=== PATIENT | male | born 1955 | race Caucasian/White ===

== ENCOUNTER 2018-09-18 08:16 | Day surgery (SDC) | payer BC ==
[~2018-09-18 08:16] MED LIST: Dexamethasone 4 MG/ML 5 ML MDV ONE; Lactated Ringers 1,000 ML IV SCH; Midazolam 1 MG/ML 2 ML SDV ONE; Ondansetron 4 MG/2 ML SDV ONE; Propofol 200 MG/20 ML SDV ONE; Rocuronium 100 MG/10 ML Syringe ONE; cefOXitin 2 GM in Premix Bag 1 BAG IV ONE; fentaNYL 250 MCG/5 ML SDV ONE
[2018-09-18] MEDS ORDERED: fentaNYL 100 MCG/2 ML SDV IVPUSH PRN (08:39)
[2018-09-18] MEDS ORDERED: cefOXitin 100 ML ONE (08:45)
[2018-09-18] MEDS ORDERED: Scopolamine 1.5 MG Transdermal Patch TRDERM PRN (09:19)
--- NOTE | 2018-09-18 09:19 | PCM.PREANE ---
Preanesthetic Assessment - Anesthesia/Transfusion/Family Hx Anesthesia History: Prior Anesthesia Without Reaction Family History of Anesthesia Reaction: No Transfusion History: No Prior Transfusion(s) - Review of Systems General: No Symptoms Pulmonary: No Symptoms Cardiovascular: No Symptoms Gastrointestinal: No Symptoms Neurological: No Symptoms Other: Reports: None - Physical Assessment NPO Status Date: 09/17/18 NPO Status Time: 23:00 O2 Sat by Pulse Oximetry: 98 Respiratory Rate: 16 Vital Signs: Last Vital Signs Temp 97.7 F 09/18/18 08:35 Pulse 57 L 09/18/18 08:35 Resp 16 09/18/18 08:35 BP 145/79 H 09/18/18 08:35 Pulse Ox 98 09/18/18 08:35 Height: 6 ft Weight: 87.09 kg ASA Class: 2 Mental Status: Alert & Oriented x3 Airway Class: Mallampati = 2 Dentition: Reports: Normal Dentition ROM/Head Extension: Full Lungs: Clear to Auscultation, Normal Respiratory Effort Cardiovascular: Regular Rate, Regular Rhythm - Allergies Allergies/Adverse Reactions: Allergies Allergy/AdvReac Type Severity Reaction Status Date / Time gluten Allergy Rash Verified 09/15/18 11:57 - Blood Blood Available: No - Anesthesia Plan Pre-Op Medication Ordered: None - Acknowledgements Anesthesia Type Planned: General Anesthesia Pt an Appropriate Candidate for the Planned Anesthesia: Yes Alternatives and Risks of Anesthesia Discussed w Pt/Guardian: Yes Pt/Guardian Understands and Agrees with Anesthesia Plan: Yes Additional Comments: PMH: htn, alex-uses cpap PLAN: get PreAnesthesia Questionnaire HEENT History: Reports: Other (See Below) Other HEENT History: wears glasses Cardiovascular History: Reports: Hypertension Other Cardiovascular History: murmur as an Respiratory History: Reports: Sleep Apnea Other Respiratory History: uses CPAP Gastrointestinal History: Reports: GERD Genitourinary History: Reports: Renal Calculus Musculoskeletal History: Reports: Fracture, Other (See Below) Other Musculoskeletal History: scoliosis Neurological History: Reports: None Psychiatric History: Reports: None Endocrine/Metabolic History: Reports: None Hematologic History: Reports: None Immunologic History: Reports: None Oncologic (Cancer) History: Reports: None Other Dermatologic History: occasional rash if he eats gluten - Past Surgical History Head Surgeries/Procedures: Reports: None HEENT Surgical History: Reports: None Respiratory Surgical History: Reports: None GI Surgical History: Reports: Appendectomy, Colonoscopy, EGD, Hernia, Inguinal Male Surgical History: Reports: Lithotripsy ([facility]) Endocrine Surgical History: Reports: None Neurological Surgical History: Reports: None Musculoskeletal Surgical History: Reports: Other (See Below) Other Musculoskeletal Surgeries/Procedures:: surgery to repair fx left collarbone Oncologic Surgical History: Reports: None Dermatological Surgical History: Reports: None - SUBSTANCE USE Smoking Status *Q: Never Smoker Recreational Drug Use History: No - HOME MEDS Home Medications: Home Meds Aspirin [Ecotrin] 81 mg PO DAILY 09/15/18 [History] Lisinopril 5 mg PO DAILY 09/15/18 [History] Multivitamin [Multivitamins] 1 tab PO DAILY 09/15/18 [History] Omeprazole 20 mg PO DAILY 09/15/18 [History] - CURRENT (IN HOUSE) MEDS Current Meds: Current Medications Fentanyl (Sublimaze) 50 mcg IVPUSH Q5M PRN PRN Reason: Pain (severe 7-10) Stop: 09/18/18 14:00 Lactated Ringer's (Ringers, Lactated) 1,000 mls @ 125 mls/hr IV ASDIRECTED [facility] Discontinued Medications Dexamethasone (Dexamethasone) Confirm Administered Dose 20 mg .ROUTE .STK-MED ONE Stop: 09/18/18 07:07 Fentanyl (Sublimaze) Confirm Administered Dose 250 mcg .ROUTE .STK-MED ONE Stop: 09/18/18 07:06 Cefoxitin Sodium 2 gm/ Premix 50 mls @ 100 mls/hr IV ONETIME ONE Stop: 09/18/18 06:29 Lactated Ringer's (Ringers, Lactated) 1,000 mls @ 125 mls/hr IV ASDIRECTED [facility] Lidocaine HCl (Xylocaine-Mpf 1%) Confirm Administered Dose 5 mls @ as directed .ROUTE .STK-MED ONE Stop: 09/18/18 07:07 Acetaminophen (Ofirmev) Confirm Administered Dose 100 mls @ as directed IV .STK- MED ONE Stop: 09/18/18 07:26 Cefoxitin Sodium (Mefoxin In Dextrose,Iso-Osm 1 Gm/50 Ml) Confirm Administered Dose 100 mls @ as directed .ROUTE .STK-MED ONE Stop: 09/18/18 08:46 Midazolam HCl (Versed 1 Mg/Ml) Confirm Administered Dose 2 mg .ROUTE .STUnited Preference-MED ONE Stop: 09/18/18 07:06 Ondansetron HCl (Zofran) Confirm Administered Dose 4 mg .ROUTE .DynaOpticsMED ONE Stop: 09/18/18 07:07 Propofol (Diprivan 20 Ml) Confirm Administered Dose 200 mg .ROUTE .DynaOpticsMED ONE Stop: 09/18/18 07:06 Rocuronium [place] (Zemuron) Confirm Administered Dose 100 mg .ROUTE .DynaOpticsMED ONE Stop: 09/18/18 07:10 Succinylcholine Chloride (Succinylcholine Chloride) Confirm Administered Dose 200 mg .ROUTE .DynaOpticsMED ONE Stop: 09/18/18 07:10
[2018-09-18] MEDS ORDERED: ceFAZolin 1 GM Vial ONE (09:46)
[2018-09-18] MEDS ORDERED: Bupivacaine 0.5% 10 ML SDV ONE (09:46)
[2018-09-18] MEDS ORDERED: Arista AH Absorbable Hemostat ONE (09:47)
[2018-09-18] MEDS ORDERED: ePHEDrine 50 MG/ML SDV ONE (10:41)
[2018-09-18] MEDS ORDERED: Atropine 0.1 MG/ML 10 ML Syringe ONE (10:41)
[2018-09-18] MEDS ORDERED: EPINEPHrine 1:10,000 1 MG/10 ML Syringe ONE (10:41)
[2018-09-18] MEDS ORDERED: Glycopyrrolate 0.2 MG/ML SDV ONE ×2 (10:41→10:53)
[2018-09-18] MEDS ORDERED: Neostigmine Methylsulfate 1 MG/ML 5 ML Syringe ONE (10:53)
[2018-09-18] MEDS ORDERED: HYDROmorphone 2 MG/ML Syringe ONE (11:12)
[2018-09-18] MEDS ORDERED: Morphine 10 MG/ML Syringe IVPUSH PRN (11:45)
[2018-09-18] MEDS ORDERED: Acetaminophen/HYDROcodone 325-5 MG Tab PO PRN (11:45)
[2018-09-18] MEDS ORDERED: Lactated Ringers 1,000 ML IV SCH (11:45)
--- NOTE | 2018-09-18 11:48 | PCM.OPNOTE ---
- General Post-Op/Procedure Note Date of Surgery/Procedure: 09/18/18 (.) Operative Procedure(s): Laparoscopic cholecystectomy Pre Op Diagnosis: Symptomatic cholelithiasis Post-Op Diagnosis: Same Anesthesia Technique: General ET Tube (ASA II) Primary Surgeon: Hoang Valentino Editorial Writer: Charlene Amezcua Condition: Good Free Text/Narrative:: DICTATION 379454 CPT CODE [id number]
--- NOTE | 2018-09-18 13:03 | PCM.POSTAN ---
POST ANESTHESIA ASSESSMENT - MENTAL STATUS Mental Status: Alert, Oriented - RESPIRATORY Respiratory Status: Respiratory Rate WNL, Airway Patent, O2 Saturation Stable - CARDIOVASCULAR CV Status: Pulse Rate WNL, Blood Pressure Stable - GASTROINTESTINAL GI Status: No Symptoms - POST OP HYDRATION Hydration Status: Adequate & Stable
--- NOTE | 2018-09-18 13:29 | PCM48HPAN ---
Post Anesthesia Note - EVALUATION WITHIN 48HRS OF ANESTHETIC Vital Signs in Normal Range: Yes Patient Participated in Evaluation: Yes Respiratory Function Stable: Yes Airway Patent: Yes Cardiovascular Function Stable: Yes Hydration Status Stable: Yes Pain Control Satisfactory: Yes Nausea and Vomiting Control Satisfactory: Yes Mental Status Recovered: Yes Resp Rate: 14
[2018-09-18] MEDS ORDERED: Ibuprofen 400 MG Tab PO ONE (14:57)
--- NOTE | 2018-09-18 16:15 | OR ---
SURGEON: Hoang Valentino M.D. DATE OF PROCEDURE: 09/18/2018 OPERATION PERFORMED: Laparoscopic cholecystectomy. ANESTHESIA: General endotracheal. ASA CLASSIFICATION: II. PREOPERATIVE DIAGNOSIS: Symptomatic cholelithiasis. POSTOPERATIVE DIAGNOSIS: Symptomatic cholelithiasis. ESTIMATED BLOOD LOSS: 20 mL. INTRAOPERATIVE FLUID REPLACEMENT: 1500 mL of crystalloid. INTRAOPERATIVE URINARY OUTPUT: 700 mL. DESCRIPTION OF PROCEDURE: The patient was taken to the operating room and placed on the operating table in the supine position. Time-out was called for appropriate identification of the patient and procedure. Thigh-high TEDs and sequential compression boots were placed. Following satisfactory attainment of general endotracheal anesthesia, a Brody catheter was placed in the patient's urinary bladder. The abdomen was prepped with DuraPrep solution and sterile drapes were applied. The skin just below the umbilicus was infiltrated with 0.5% Marcaine solution. The skin incision was made and deepened through the subcutaneous tissue obtaining hemostasis with the use of electrocautery. The Veress needle was introduced into the peritoneal cavity. Saline drop test was positive. Carbon dioxide pneumoperitoneum was established with the release set at 13 cm of water. Once a satisfactory pneumoperitoneum was established, the Veress needle was removed and a 5 mm camera and port were placed. The patient was in the process of being positioned with his feet down and rolled to the left when he became profoundly bradycardic. We did have to stop insufflation and desufflate the abdomen. He was resuscitated per Anesthesia and it was determined that we should proceed with the operative procedure. The abdomen was re-insufflated using total pressure of 11 cm of water. The patient did not have any other untoward events using less pressure. With the 5 mm infraumbilical camera and port in position, a 12 mm subxiphoid, 5 mm midclavicular, and 5 mm anterior axillary ports were placed. Each incision was preemptively infiltrated with 0.5% Marcaine. The gallbladder was grasped, adhesions were taken down, and the cholecystohepatic triangle was dissected free identifying the cystic duct and cystic artery. Critical view of both structures were able to be obtained. Structures were serially hemoclipped and divided with the laparoscopic Metzenbaum scissor. The gallbladder was then dissected away from its bed using electrocautery. Some bile but no stones were spilled. Once the gallbladder was amputated, this was placed in an Endopouch and maintained in situ. The bed of the gallbladder was inspected and small bleeding sites were electrocoagulated. Surgicel was placed into the bed of the gallbladder. The right upper quadrant was then irrigated with 250 mL of saline containing 20 mL of 0.5% Marcaine solution. That fluid was left in place. The EndoCatch containing gallbladder and 12 mm port were removed. Under camera vision, the 5 mm midclavicular and anterior axillary ports were removed and finally the infraumbilical camera and port were removed. The wounds were inspected for hemostasis and bleeding sites were electrocoagulated. The subxiphoid and infraumbilical incisions were closed in 2 layers approximating the subcutaneous tissue with 3-0 Vicryl and the skin with subcuticular 4-0 Monocryl. The midclavicular and anterior axillary incisions were closed with subcuticular 4-0 Monocryl. All incisions were Steri-Stripped and dressed with sterile Tegaderm pads. Sponge, needle, and instrument counts were all correct. Brody catheter was removed prior to emergence from anesthesia. Following emergence from anesthesia and extubation, the patient was taken to recovery room in satisfactory condition. JENNIFER KRUGER /[id number]
== END 2018-09-18 16:24 | disposition home or self-care (01) ==
LOC: MW.SDS 08:16
PROVIDERS: ATTEND Surgery
DX: K80.10 Calculus of gallbladder with chronic cholecystitis without obstruction (principal); I10 Essential (primary) hypertension; K21.9 Gastro-esophageal reflux disease without esophagitis; K90.41 Non-celiac gluten sensitivity; G47.30 Sleep apnea, unspecified; M19.90 Unspecified osteoarthritis, unspecified site; Z99.89 Dependence on other enabling machines and devices; Z79.82 Long term (current) use of aspirin; Z79.899 Other long term (current) drug therapy
CPT/HCPCS: 47562; A9270; J0131; J0330; J0461; J0694; J1100; J1170; J2001; J2250; J2405; J2704; J3010; J3490; J7120; 88304; J0171; J0690

== ENCOUNTER 2023-09-15 09:31 | Emergency (ER) | payer MEDICARE, OTHER ==
[2023-09-15] MEDS: Sodium Chloride 0.9% 10 ML Syringe FLUSH PRN (10:05)
[2023-09-15] MEDS: Sodium Chloride 0.9% 1,000 ML IV STA ×2 (10:05→12:19)
[2023-09-15] MEDS: Ondansetron 4 MG/2 ML SDV IVPUSH ONE (10:05)
[2023-09-15] MEDS: Sodium Chloride 0.9% 2.5 ML Syringe FLUSH PRN (10:05)
[2023-09-15] MEDS: Morphine 4 MG/ML Syringe IVPUSH ONE ×2 (10:06→10:48)
[2023-09-15 10:07] LABS: HEMATOCRIT 40.2 % (42.0-52.0); HEMOGLOBIN 13.8 g/dL (14.0-18.0); MEAN CORPUSCULAR HEMOGLOBIN 30.9 pg (28.0-32.0); MEAN CORPUSCULAR HGB CONC 34.3 g/dL (32.0-36.0); MEAN CORPUSCULAR VOLUME 89.9 fL (83.0-99.0); MEAN PLATELET VOLUME 8.2 fL (9.4-12.4); PLATELET COUNT,PLT 211 K/uL (150-400); RED BLOOD CELL COUNT 4.47 M/uL (4.52-5.90); WHITE BLOOD CELL COUNT,WBC 12.75 K/uL (3.9-11.3)
[2023-09-15 10:35] LABS: A/G RATIO 1.3 (0.9-1.6); ALBUMIN 3.7 g/dL (3.4-5.0); BILIRUBIN TOTAL 0.4 mg/dL (0.2-1.0); CALCIUM 8.8 mg/dL (8.5-10.1); CARBON DIOXIDE,CO2 27.8 mmol/L (21.0-32.0); EST CRCL DRUG DOSING (CG) 79.76 mL/min; POTASSIUM,K 3.9 mmol/L (3.5-5.1); PROTEIN TOTAL,TP 6.5 g/dL (6.4-8.2)
[2023-09-15 10:49] LABS: EOSINOPHILS ABSOLUTE MAN 0.13 K/uL (0.00-0.45); EOSINOPHILS PERCENT MAN 1 % (0-6); LYMPHOCYTES PERCENT MAN 69 % (24-44); MONOCYTES ABSOLUTE MAN 0.51 K/uL (0.00-0.80); MONOCYTES PERCENT MAN 4 % (0-8); SEG NEUTROPHILS ABSOLUTE MAN 3.32 K/uL (1.80-7.70); SEG NEUTROPHILS PERCENT MAN 26 % (41-71)
[2023-09-15 10:50] LABS: SMUDGE CELLS MODERATE
[2023-09-15] MEDS: Iopamidol 755 MG/ML 500 ML Multipack Bottle IVPUSH STA (11:08)
[2023-09-15] MEDS: Midazolam 1 MG/ML 2 ML SDV IVPUSH ONE (12:09)
[2023-09-15] MEDS: Ketorolac 30 MG/ML SDV IVPUSH ONE (12:18)
[2023-09-15 12:25] LABS: APPEARANCE,URINE CLEAR; BILIRUBIN,URINE NEGATIVE (NEGATIVE); COLOR,URINE YELLOW; GLUCOSE,URINE NEGATIVE (NEGATIVE); KETONES,URINE NEGATIVE (NEGATIVE); LEUKOCYTE ESTERASE,URINE NEGATIVE (NEGATIVE); NITRITE,URINE NEGATIVE (NEGATIVE); OCCULT BLOOD,URINE TRACE-INTACT (NEGATIVE); PH,URINE 6.5 (5.0-8.0); PROTEIN,URINE NEGATIVE (NEGATIVE); UROBILINOGEN,URINE 0.2 EU/dL (<2.0)
[2023-09-15 12:33] LABS: AMPHETAMINES SCREEN, URINE NEGATIVE (CUTOFF=500); BARBITURATE SCREEN,URINE NEGATIVE (CUTOFF=200); BENZODIAZEPINES SCREEN,URINE NEGATIVE (CUTOFF=150); BUPRENORPHINE SCREEN,URINE NEGATIVE (CUTOFF=10); METHADONE SCREEN, URINE NEGATIVE (CUTOFF=200); METHAMPHETAMINES SCREEN, URINE NEGATIVE (CUTOFF=500); OXYCODONE SCREEN,URINE NEGATIVE (CUT0FF=100); PCP SCREEN,URINE NEGATIVE (CUTOFF=25); THC SCREEN,URINE 20 NG/ML NEGATIVE (CUTOFF=50)
[2023-09-15 12:39] LABS: EPITHELIAL CELLS,URINE NOT SEEN (NONE-FEW); WBC,URINE 0-1 (0-5/HPF)
[2023-09-15 12:40] LABS: BACTERIA,URINE NOT SEEN (NEGATIVE)
== END 2023-09-15 14:25 | disposition home or self-care (01) ==
LOC: MW.ED 09:31
DX: N13.2 Hydronephrosis with renal and ureteral calculous obstruction (principal); I10 Essential (primary) hypertension; Z79.82 Long term (current) use of aspirin; Z79.899 Other long term (current) drug therapy; Z90.49 Acquired absence of other specified parts of digestive tract; Z91.018 Allergy to other foods; Z75.8 Other problems related to medical facilities and other health care
CPT/HCPCS: 36415; 74177; 80053; 80305; 81001; 83690; 85025; 93005; 96361; 96374; 96375; 96376; 99284; J1885; J2270; J2405; J3490; J7030; Q9967; 93010

== ENCOUNTER 2023-10-23 22:49 | Emergency (ER) | payer MEDICARE, OTHER ==
[2023-10-23 23:21] LABS: APPEARANCE,URINE CLEAR; BILIRUBIN,URINE NEGATIVE (NEGATIVE); COLOR,URINE YELLOW; GLUCOSE,URINE 100 mg/dL (NEGATIVE); KETONES,URINE NEGATIVE (NEGATIVE); LEUKOCYTE ESTERASE,URINE NEGATIVE (NEGATIVE); NITRITE,URINE NEGATIVE (NEGATIVE); OCCULT BLOOD,URINE SMALL (NEGATIVE); PROTEIN,URINE NEGATIVE (NEGATIVE); UROBILINOGEN,URINE 0.2 EU/dL (<2.0)
[2023-10-23] MEDS: Morphine 2 MG/ML SYRINGE IVPUSH ONE (23:21)
[2023-10-23] MEDS: Ondansetron 4 MG/2 ML SDV IVPUSH ONE (23:21)
[2023-10-23] MEDS: Sodium Chloride 0.9% 2.5 ML Syringe FLUSH PRN (23:22)
[2023-10-23] MEDS: Sodium Chloride 0.9% 10 ML Syringe FLUSH PRN (23:22)
[2023-10-23] MEDS: Sodium Chloride 0.9% 1,000 ML IV ONE (23:22)
[2023-10-23 23:29] LABS: BACTERIA,URINE RARE (NEGATIVE); EPITHELIAL CELLS,URINE RARE (NONE-FEW); WBC,URINE 0-2 (0-5/HPF)
[2023-10-23 23:43] LABS: HEMATOCRIT 38.3 % (42.0-52.0); HEMOGLOBIN 13.4 g/dL (14.0-18.0); MEAN CORPUSCULAR HEMOGLOBIN 31.1 pg (28.0-32.0); MEAN CORPUSCULAR VOLUME 88.9 fL (83.0-99.0); MEAN PLATELET VOLUME 8.2 fL (9.4-12.4); PLATELET COUNT,PLT 172 K/uL (150-400); RED BLOOD CELL COUNT 4.31 M/uL (4.52-5.90); WHITE BLOOD CELL COUNT,WBC 14.28 K/uL (3.9-11.3)
[2023-10-24 00:11] LABS: A/G RATIO 1.4 (0.9-1.6); ALBUMIN 3.8 g/dL (3.4-5.0); BILIRUBIN TOTAL 0.7 mg/dL (0.2-1.0); CALCIUM 8.8 mg/dL (8.5-10.1); CARBON DIOXIDE,CO2 25.1 mmol/L (21.0-32.0); CREATININE 1.3 mg/dL (0.8-1.3); EST CRCL DRUG DOSING (CG) 61.35 mL/min; POTASSIUM,K 4.7 mmol/L (3.5-5.1); PROTEIN TOTAL,TP 6.5 g/dL (6.4-8.2)
[2023-10-24] MEDS: Iopamidol 755 MG/ML 500 ML Multipack Bottle IVPUSH ONE (00:31)
[2023-10-24 01:52] LABS: SEG NEUTROPHILS ABSOLUTE MAN 7.14 K/uL (1.80-7.70); SEG NEUTROPHILS PERCENT MAN 50 % (41-71)
[2023-10-24 01:53] LABS: LYMPHOCYTES % ATYPICAL MANUAL 7; LYMPHOCYTES ABSOLUTE MAN 6.14 K/uL (1.00-4.80); LYMPHOCYTES PERCENT MAN 43 % (24-44)
[2023-10-24] MEDS: Ketorolac 30 MG/ML SDV IVPUSH ONE (02:06)
[2023-10-24] MEDS: cefTRIAXone 1 GM in Sodium Chloride 0.9% 50 ML IV ONE (02:07)
== END 2023-10-24 02:56 | disposition home or self-care (01) ==
LOC: MW.ED 22:49
DX: N13.2 Hydronephrosis with renal and ureteral calculous obstruction (principal); I10 Essential (primary) hypertension; K21.9 Gastro-esophageal reflux disease without esophagitis; K40.90 Unilateral inguinal hernia, without obstruction or gangrene, not specified as recurrent; Z91.018 Allergy to other foods; Z79.82 Long term (current) use of aspirin; Z79.899 Other long term (current) drug therapy
CPT/HCPCS: 36415; 74177; 80053; 81001; 83690; 85025; 96361; 96365; 96375; 99284; J0696; J1885; J2270; J2405; J3490; J7030; Q9967